=== PATIENT | male | born 1970 | race Hispanic/Latino ===

== ENCOUNTER 2023-10-17 08:20 | Emergency (ER) | payer OTHER ==
[~2023-10-17] VITALS: Ht 182.9 cm; Wt 112.0 kg
[2023-10-17] MEDS ORDERED: IBUPROFEN 800 MG TAB ONE (09:35)
[2023-10-17] MEDS ORDERED: ACETAMINOPHEN 500 MG TABLET ONE (09:35)
[2023-10-17 10:15] VITALS: BP 126/74; PULSE 84; RESP 18; O2SAT 98
== END 2023-10-17 10:16 | disposition home or self-care (01) ==
LOC: EDH 08:20
DX: S93.401A Sprain of unspecified ligament of right ankle, initial encounter (principal); X58.XXXA Exposure to other specified factors, initial encounter; Y93.89 Activity, other specified; Y92.89 Other specified places as the place of occurrence of the external cause; Y99.8 Other external cause status
CPT/HCPCS: 73610